=== PATIENT | male | born 1980 | race Caucasian/White ===

== ENCOUNTER 2016-12-24 05:37 | Emergency (ER) | payer BC, OTHER ==
--- NOTE | 2016-12-24 05:59 | ED.PDOC ---
History of Present Illness - General Chief Complaint: Skin/Abrasion/Tear Stated Complaint: rash all over body, itching Time Seen by Provider: 12/24/16 05:53 Source: patient Exam Limitations: no limitations - History of Present Illness Initial Comments: the patient is a 36-year-old male presenting to emergency room secondary to hives that are primarily on the upper extremities and torso. No oral lesions and no lesions on the palms or soles. No blisters or pustules. No dermatomal distribution. The lesions do itch. They are red and mildly raised. The patient did start a new triglyceride medication within the last week. He stopped it yesterday. No fevers. No sore throat. No shortness of breath. No swelling of the lips or oropharynx. Timing/Duration: 24 hours Severity: moderate Improving Factors: nothing Worsening Factors: nothing Associated Symptoms: denies symptoms Allergies/Adverse Reactions: Allergies Penicillin G Allergy (Intermediate, Verified 12/24/16 05:44) Home Medications: Ambulatory Orders Lisinopril [Prinivil] 20 mg PO DAILY 04/09/15 [place]-3 Fatty Acids [[place] 3] 1 cap PO DAILY 12/24/16 predniSONE [Prednisone] 20 mg PO DAILY #3 tab 12/24/16 Review of Systems - Review of Systems Constitutional: States: no symptoms reported EENTM: States: no symptoms reported Respiratory: States: no symptoms reported Cardiology: States: no symptoms reported Gastrointestinal/Abdominal: States: no symptoms reported Genitourinary: States: no symptoms reported Musculoskeletal: States: no symptoms reported Skin: States: see HPI Neurological: States: no symptoms reported Endocrine: States: no symptoms reported All other Systems: No Change from Baseline Past Medical History (General) - Patient Medical History Hx Seizures: No Hx Stroke: No Hx Dementia: No Hx Asthma: No Hx of COPD: No Hx Cardiac Disorders: No Hx Congestive Heart Failure: No Hx Pacemaker: No Hx Hypertension: Yes Hx Thyroid Disease: No Hx Diabetes: No Hx Gastroesophageal Reflux: No Hx Renal Disease: No Hx Cancer: No Hx of HIV: No Hx Hepatitis C: No Hx MRSA: No Surgical History: no surgical history - Vaccination History Hx Tetanus, Diphtheria Vaccination: No Hx Influenza Vaccination: No Hx Pneumococcal Vaccination: No Immunizations Up to Date: No - Social History Hx Tobacco Use: No Hx Chewing Tobacco Use: No Hx Alcohol Use: No Hx Substance Use: No Hx Substance Use Treatment: No Hx Depression: No Feels Threatened In Home Enviroment: No Feels Threatened In a Relationship: No Hx Physical Abuse: No Hx Emotional Abuse: No Hx Suspected Abuse: No Family Medical History - Family History Mother Family History: No Known Living Status: Still Living Physical Exam - Physical Exam General Appearance: Alert, Comfortable, No apparent distress Eye Exam: bilateral normal Ears, Nose, Throat: hearing grossly normal, normal ENT inspection, normal pharynx Neck: non-tender, full range of motion, supple Respiratory: chest non-tender, lungs clear, normal breath sounds, no respiratory distress, no accessory muscle use Cardiovascular/Chest: normal peripheral pulses, regular rate, rhythm, no edema Peripheral Pulses: radial,right: 2+, radial,left: 2+ Gastrointestinal/Abdominal: soft Rectal Exam: deferred Back Exam: normal inspection - with the exception of a few hives Extremity: normal range of motion, non-tender, no pedal edema, no calf tenderness, normal capillary refill Neurologic: alert, normal mood/affect, oriented x 3 Skin Exam: normal color - with the exception of hives Comments: Vital Signs - 24 hr 12/24/16 12/24/16 05:42 05:44 Temperature 96.6 F L Pulse Rate [ 81 monitor] Respiratory 18 18 Rate Blood Pressure 147/105 [Left Arm] O2 Sat by Pulse 96 Oximetry Progress - Progress Progress: 12/24/16 06:00 the patient is a 36-year-old male presenting with urticaria that may be the result of a new medication. He needs to hold this medication for at least 2 weeks before retrying it. The patient is given a dose of Singulair and prednisone here tonight. He will be written for 3 days of outpatient prednisone. He needs to follow-up with his primary care doctor later this week. He needs to keep well-hydrated. He can take Zyrtec daily for the next 2 weeks. He needs to avoid scratching. ER warnings were given for any worsening or shortness of breath. Departure - Departure Clinical Impression: Urticaria due to drug allergy Disposition: Discharge to Home or Self Care Condition: Fair Departure Forms: ED Discharge - Pt. Copy, Patient Portal Self Enrollment Instructions: DI for Hives Diet: regular diet Activity: increase activity as tolerated Referrals: Joni Muller MD [Primary Care Provider] - 1-2 Weeks Prescriptions: predniSONE [Prednisone] 20 mg PO DAILY #3 tab Home Medications: Ambulatory Orders Lisinopril [Prinivil] 20 mg PO DAILY 04/09/15 [place]-3 Fatty Acids [[place] 3] 1 cap PO DAILY 12/24/16 predniSONE [Prednisone] 20 mg PO DAILY #3 tab 12/24/16 Additional Instructions: the patient is a 36-year-old male presenting with urticaria that may be the result of a new medication. He needs to hold this medication for at least 2 weeks before retrying it. The patient is given a dose of Singulair and prednisone here tonight. He will be written for 3 days of outpatient prednisone. He needs to follow-up with his primary care doctor later this week. He needs to keep well-hydrated. He can take Zyrtec daily for the next 2 weeks. He needs to avoid scratching. ER warnings were given for any worsening or shortness of breath.
[2016-12-24] MEDS: predniSONE 20 MG TAB PO ONE (06:05)
[2016-12-24] MEDS: MONTELUKAST SODIUM 10 MG TAB PO ONE (06:05)
[2016-12-24 06:12] VITALS: BP 141/93; TEMP 98; O2SAT 97
== END 2016-12-24 06:10 | disposition home or self-care (01) ==
LOC: ER 05:37
DX: L50.0 Allergic urticaria (principal); I10 Essential (primary) hypertension; Z88.0 Allergy status to penicillin; Z79.899 Other long term (current) drug therapy

== ENCOUNTER 2018-04-09 13:18 | Emergency (ER) | payer BC, OTHER ==
[2018-04-09] MEDS ORDERED: KETOROLAC TROMETHAMINE INJ 60 MG/2 ML VIAL IM ONE (13:45)
[2018-04-09] MEDS ORDERED: traMADol 37.5MG/APAP 325MG 1 EA TAB PO ONE (13:45)
--- NOTE | 2018-04-09 14:19 | RAD ---
EXAM DESCRIPTION: Shoulder,Right 2 or More Views CLINICAL HISTORY: right shoulder pain COMPARISON: None Available. TECHNIQUE: Two views of the right shoulder. FINDINGS: There is adequate internal and external rotation. There is no fracture or dislocation. There are no significant degenerative changes observed. AC joint appears intact. No focal bone lesion. IMPRESSION: Negative for fracture or dislocation. Electronically signed by: Parag Smith MD 04/09/2018 2:18 PM CDT
--- NOTE | 2018-04-09 14:26 | ED.PDOC ---
History of Present Illness - General Chief Complaint: Upper Extremity Injury Stated Complaint: RIGHT SHOULDER PAIN Time Seen by Provider: 04/09/18 13:44 Source: patient Exam Limitations: no limitations - History of Present Illness Initial Comments: PT PRESENTS TO THE ED WITH COMPLAINT OF RIGHT SHOULDER PAIN THAT BEGAN AFTER HE TRIED TO STOP A HEAVY LOAD OF BOXES FROM FALLING OFF A SHELF 3 DAYS AGO. Pain - Upper Extremity: moderate: Shoulder, right Improving Factors: immobilization Worsening Factors: movement Allergies/Adverse Reactions: Allergies Penicillin G Allergy (Intermediate, Verified 04/09/18 13:46) Home Medications: Ambulatory Orders Lisinopril [Prinivil] 20 mg PO DAILY 04/09/15 Ibuprofen 800 mg PO Q8HR PRN #30 tab 04/09/18 Tramadol-Acetaminophen [Ultracet] 1 - 2 tab PO Q6HR PRN #30 tab 04/09/18 Review of Systems - Review of Systems Constitutional: Denies: chills, fever EENTM: Denies: ear pain, nose congestion Respiratory: Denies: cough, short of breath Cardiology: Denies: chest pain, palpitations Musculoskeletal: States: joint pain. Denies: joint swelling Past Medical History (General) - Patient Medical History Hx Seizures: No Hx Stroke: No Hx Dementia: No Hx Asthma: No Hx of COPD: No Hx Cardiac Disorders: No Hx Congestive Heart Failure: No Hx Pacemaker: No Hx Hypertension: Yes Hx Thyroid Disease: No Hx Diabetes: No Hx Gastroesophageal Reflux: No Hx Renal Disease: No Hx Cancer: No Hx of HIV: No Hx Hepatitis C: No Hx MRSA: No Surgical History: no surgical history - Vaccination History Hx Tetanus, Diphtheria Vaccination: No Hx Influenza Vaccination: Yes Hx Pneumococcal Vaccination: No - Social History Hx Tobacco Use: No Hx Chewing Tobacco Use: No Hx Alcohol Use: No Hx Substance Use: No Hx Substance Use Treatment: No Hx Depression: No Hx Physical Abuse: No Hx Emotional Abuse: No Hx Suspected Abuse: No - Activities of Daily Living [facility] (if applicable[facility]:: [facility] (if applicable):: None Family Medical History - Family History Mother Family History: No Known Living Status: Still Living Father Living Status: Still Living Hx Family Hypertension: Yes Physical Exam - Physical Exam General Appearance: Alert, No apparent distress, Well Developed, Well Groomed, Well Hydrated Eyes, Ears, Nose, Throat Exam: normal ENT inspection Neck: full range of motion, supple Cardiovascular/Respiratory: no respiratory distress Back Exam: normal inspection Shoulder Exam: normal inspection, non-tender, limited ROM - PAIN WITH ADDUCTION OF RIGHT SHOULDER Elbow/Forearm Exam: normal inspection, non-tender, no evidence of injury Wrist Exam: normal inspection, non-tender, no evidence of injury Hand Exam: normal inspection, non-tender, no evidence of injury Neuro/Tendon: normal sensation, normal motor functions, normal tendon functions Mental Status: alert, oriented x 3 Skin Exam: normal color, warm/dry Progress - EKG/XRAY/CT XRAY: SHOULDER, NO ACUTE FINDINGS Departure - Departure Clinical Impression: Sprain of shoulder Time of Disposition: 14:28 Disposition: Discharge to Home or Self Care Condition: Good Departure Forms: ED Discharge - Pt. Copy, Patient Portal Self Enrollment Instructions: Shoulder Sprain (DC) Referrals: David Perez MD [Active Staff] - 1-2 Weeks Prescriptions: Tramadol-Acetaminophen [Ultracet] 1 - 2 tab PO Q6HR PRN #30 tab PRN Reason: Pain Ibuprofen 800 mg PO Q8HR PRN #30 tab PRN Reason: Pain Home Medications: Ambulatory Orders Lisinopril [Prinivil] 20 mg PO DAILY 04/09/15 Ibuprofen 800 mg PO Q8HR PRN #30 tab 04/09/18 Tramadol-Acetaminophen [Ultracet] 1 - 2 tab PO Q6HR PRN #30 tab 04/09/18
[2018-04-09 14:54] VITALS: BP 118/77; TEMP 97.4; O2SAT 96
== END 2018-04-09 14:52 | disposition home or self-care (01) ==
LOC: ER 13:18
DX: S43.401A Unspecified sprain of right shoulder joint, initial encounter (principal); I10 Essential (primary) hypertension; X50.0XXA Overexertion from strenuous movement or load, initial encounter; Z88.0 Allergy status to penicillin; Y92.9 Unspecified place or not applicable
CPT/HCPCS: 73030; J1885